=== PATIENT | female | born 1970 | race Caucasian/White ===

== ENCOUNTER 2023-01-08 08:10 | Outpatient (OUT) | payer OTHER, SELFPAY ==
--- NOTE | 2023-01-08 14:06 | XR_ITS ---
[address] [address] Patient Name: LORNE PEOPLES MRN: [id number] date: 1970 Sex: F Assigned Patient Location: [facility] Current Patient Location: [facility] Accession/Order Number: [id number] Exam Date: 01/08/2023 14:05 Report Date: 01/08/2023 14:46 At the request of: ABHILASH SR Procedure: XR foot LT min 3V EXAM: XR foot LT min 3V HISTORY: LEFT FOOT PAIN COMPARISON: None. TECHNIQUE: AP, oblique and lateral views Impression: 1. No acute fracture or malalignment. 2. No articular erosions. 3. No periosteal reaction or osteolysis. Electronically authenticated by: CANDELARIA BAUER Date: 01/08/2023 14:46
--- NOTE | 2023-01-08 14:06 | XR_ITS ---
[address] [address] Patient Name: LORNE PEOPLES MRN: [id number] date: 1970 Sex: F Assigned Patient Location: [facility] Current Patient Location: [facility] Accession/Order Number: [id number] Exam Date: 01/08/2023 14:05 Report Date: 01/08/2023 14:43 At the request of: ABHILASH SR Procedure: XR ankle LT min 3V EXAM: XR ankle LT min 3V HISTORY: LEFT ANKLE PAIN COMPARISON: None. TECHNIQUE: AP, oblique and lateral views Impression: 1. No acute fracture or malalignment. 2. No articular erosions. 3. No significant degenerative change. 4. No joint effusion. Electronically authenticated by: CANDELARIA BAUER Date: 01/08/2023 14:43
== END 2023-01-08 08:11 ==
LOC: RAD 08:15
PROVIDERS: PCP Physician Assistant; Visit Provider Physician Assistant
DX: M25.572 Pain in left ankle and joints of left foot (principal)
CPT/HCPCS: 73610; 73630